=== PATIENT | female | born 1985 | race African-American/Black ===

== ENCOUNTER 2016-05-21 01:19 | Emergency (ER) | payer OTHER ==
[~2016-05-21] VITALS: Ht 165.1 cm; Wt 63.0 kg
[~2016-05-21 01:19] MED LIST: PREN1TAB81 PO
[2016-05-21 02:36] VITALS: BP 117/62
== END 2016-05-21 02:28 | disposition home or self-care (01) ==
LOC: ER 01:22
DX: J06.9 Acute upper respiratory infection, unspecified (principal)
CPT/HCPCS: 99281; A4606; Z7610; Z7502

== ENCOUNTER 2016-07-01 21:39 | Emergency (ER) | payer OTHER ==
[~2016-07-01] VITALS: Ht 162.6 cm; Wt 68.0 kg
[2016-07-01 21:59] VITALS: BP 134/68
== END 2016-07-01 22:31 | disposition home or self-care (01) ==
LOC: ER 21:42
DX: J06.9 Acute upper respiratory infection, unspecified (principal); Z98.890 Other specified postprocedural states
CPT/HCPCS: A4606; Z7502; Z7610